=== PATIENT | female | born 1945 | race Caucasian/White ===

== ENCOUNTER → 2017-02-10 | Outpatient (CLI) | payer MEDICARE, OTHER ==
[2017-02-10 12:24] LABS: ABSOLUTE BASOPHILS # (AUTO) 0.1 10^3/uL (0.0-0.2); ABSOLUTE EOSINOPHILS # (AUTO) 0.1 10^3/uL (0.0-0.6); ABSOLUTE LYMPHOCYTES (AUTO) 1.6 10^3/uL (0.5-4.7); ABSOLUTE MONOCYTES (AUTO) 0.4 10^3/uL (0.1-1.4); ABSOLUTE NEUT (AUTO) 3.2 10^3/uL (1.7-8.2); BASOPHILS % (AUTO) 1.1 % (0-2); EOSINOPHILS % (AUTO) 1.4 % (0-6); HEMATOCRIT 35.6 % (36.0-47.0); HEMOGLOBIN 11.8 g/dL (12.0-15.5); HGB HCT DIFFERENCE -0.2; LYMPHOCYTES % (AUTO) 30.2 % (13-45); MEAN CORPUSCULAR HEMOGLOBIN 27.9 pg (27.0-33.4); MEAN CORPUSCULAR HGB CONC 33.1 g/dL (32.0-36.0); MEAN CORPUSCULAR VOLUME 84 fl (80-97); MONOCYTES % (AUTO) 7.5 % (3-13); RED BLOOD COUNT 4.24 10^6/uL (3.72-5.28); RED CELL DISTRIBUTION WIDTH 16.3 % (11.5-14.0); SEGMENTED NEUTROPHILS % (AUTO) 59.8 % (42-78); WHITE BLOOD COUNT 5.3 10^3/uL (4.0-10.5)
[2017-02-10 12:31] LABS: PROTHROMBIN TIME 13.2 SEC (11.4-15.4)
[2017-02-10 12:32] LABS: PARTIAL THROMBOPLASTIN TIME 27.5 SEC (23.5-35.8)
[2017-02-10 12:54] LABS: ANION GAP 10 (5-19); BLOOD UREA NITROGEN 21 mg/dL (7-20); CALCIUM 10.1 mg/dL (8.4-10.2); CARBON DIOXIDE 29 mmol/L (22-30); CHLORIDE 103 mmol/L (98-107); CREATININE RESULT 0.85 mg/dL (0.52-1.25); GLUCOSE 96 mg/dL (75-110); POTASSIUM 4.4 mmol/L (3.6-5.0); SODIUM 142.4 mmol/L (137-145)
== END ==
LOC: OD 10:51
PROVIDERS: ATTEND Orthopaedic Surgery
DX: Z96.649 Presence of unspecified artificial hip joint (principal)
CPT/HCPCS: 36415; 80048; 85025; 85610; 85730

== ENCOUNTER → 2017-02-17 | Outpatient (CLI) | payer MEDICARE, OTHER ==
[2017-02-17 10:09] LABS: APPEARANCE,URINE SLIGHTLY-CLOUDY; BILIRUBIN,URINE NEGATIVE (NEGATIVE); GLUCOSE, URINE NEGATIVE (NEGATIVE); KETONES,URINE NEGATIVE (NEGATIVE); LEUKOCYTE ESTERASE,URINE NEGATIVE (NEGATIVE); NITRITE,URINE NEGATIVE (NEGATIVE); PROTEIN,URINE NEGATIVE (NEGATIVE); UROBILINOGEN,URINE NEGATIVE mg/dL (<2.0)
[2017-02-17 10:24] LABS: ANION GAP 13 (5-19); BLOOD UREA NITROGEN 21 mg/dL (7-20); CALCIUM 10.1 mg/dL (8.4-10.2); CARBON DIOXIDE 28 mmol/L (22-30); CHLORIDE 102 mmol/L (98-107); CREATININE RESULT 0.92 mg/dL (0.52-1.25); GLUCOSE 103 mg/dL (75-110); POTASSIUM 5.2 mmol/L (3.6-5.0); SODIUM 142.5 mmol/L (137-145)
--- NOTE | 2017-02-17 22:10 | EKG REPORT ---
SEVERITY:- NORMAL ECG - SINUS RHYTHM : Confirmed by: Gila Blue MD 17-Feb-2017 22:09:48
== END ==
LOC: OD 09:22
PROVIDERS: ATTEND Orthopaedic Surgery
DX: Z01.810 Encounter for preprocedural cardiovascular examination (principal); Z01.812 Encounter for preprocedural laboratory examination; Z01.818 Encounter for other preprocedural examination
CPT/HCPCS: 36415; 71020; 80048; 81001; 85652; 93005; 93010

== ENCOUNTER 2017-03-15 06:19 | Inpatient (IN) | payer MEDICARE, OTHER ==
[2017-03-04 12:56] LABS: HEMATOCRIT 36.4 % (36.0-47.0); HEMOGLOBIN 11.9 g/dL (12.0-15.5); HGB HCT DIFFERENCE -0.7; MEAN CORPUSCULAR HEMOGLOBIN 27.8 pg (27.0-33.4); MEAN CORPUSCULAR HGB CONC 32.8 g/dL (32.0-36.0); MEAN CORPUSCULAR VOLUME 85 fl (80-97); RED CELL DISTRIBUTION WIDTH 15.7 % (11.5-14.0); WHITE BLOOD COUNT 5.3 10^3/uL (4.0-10.5)
[~2017-03-15 06:19] MED LIST: BUPIVACAINE INJ/PF LIPOSOME/PF 266 MG/20 ML SDV IJ PRN; CEFAZOLIN INJ 1 GM VIAL IV PRN; IBUPROFEN 800 MG/NS 250 ML IV PRN; LACTATED RINGERS 1000 ML IV PRN; LANSOPRAZOLE 15 MG TAB.RAP.DR PO PRN; LIDOCAINE 0.5% INJ-PF (5 MG/ML) 50 ML SDV SUBCUT PRN; OXYCODONE HCL SR 10 MG TABLET PO PRN; SCOPOLAMINE HYDROBROMIDE 1.5 MG PATCH.TD72 TOP PRN; VANCOMYCIN HCL 1,000 MG in DEXTROSE 5%-WATER 250 ML IV PRN
[2017-03-15] MEDS ORDERED: FENTANYL CITRATE INJ/PF 100 MCG/2 ML AMPUL ONE (06:52)
[2017-03-15] MEDS ORDERED: MIDAZOLAM 2 MG/2 ML INJ ONE ×2 (06:52→06:53)
[2017-03-15] MEDS ORDERED: ONDANSETRON HCL INJ/PF 4 MG/2 ML SDV ONE (06:53)
[2017-03-15] MEDS ORDERED: DEXAMETHASONE SOD PHOSPHATE INJ 4 MG/1 ML VIAL ONE (06:53)
[2017-03-15] MEDS ORDERED: TRANEXAMIC ACID INJ/PF 1,000 MG/10 ML SDV IV ONE (06:53)
[2017-03-15] MEDS ORDERED: PROPOFOL INJ 200 MG/20 ML VIAL IV ONE (06:53)
[2017-03-15] MEDS ORDERED: MORPHINE SULFATE 10 MG/ML INJ ONE (06:54)
[2017-03-15] MEDS ORDERED: BUPIVACAINE INJ/PF LIPOSOME/PF 266 MG/20 ML SDV ONE (07:38)
[2017-03-15] MEDS ORDERED: THROMBIN (BOVINE) 5000 UNIT EPITAXIS KIT ONE (07:47)
[2017-03-15] MEDS ORDERED: THROMBIN (BOVINE) TOPICAL 20000 UNIT VIAL ONE (07:49)
[2017-03-15] MEDS ORDERED: MEPERIDINE HCL/PF INJ 25 MG/1 ML DISP.SYRIN IV PRN (09:52)
[2017-03-15] MEDS ORDERED: DIPHENHYDRAMINE HCL 50 MG/ML VIAL IV PRN ×2 (09:52→10:56)
[2017-03-15] MEDS ORDERED: FENTANYL CITRATE INJ/PF 100 MCG/2 ML AMPUL IV PRN ×3 (09:52)
[2017-03-15] MEDS ORDERED: PROMETHAZINE HCL INJ 25 MG/1 ML VIAL IV PRN ×2 (09:52)
[2017-03-15] MEDS ORDERED: MORPHINE SULFATE 10 MG/ML INJ IV PRN ×4 (09:52→10:56)
[2017-03-15] MEDS ORDERED: MORPHINE SULFATE 10 MG/ML INJ IM PRN (10:56)
[2017-03-15] MEDS ORDERED: RINGERS SOLUTION,LACTATED 1,000 ML IV PRN (10:56)
[2017-03-15] MEDS ORDERED: ZOLPIDEM TARTRATE 5 MG TABLET PO PRN (10:56)
[2017-03-15] MEDS ORDERED: OXYCODONE HCL IR 5 MG TABLET PO PRN (10:56)
[2017-03-15] MEDS ORDERED: ONDANSETRON HCL INJ/PF 4 MG/2 ML SDV IV PRN (10:56)
[2017-03-15] MEDS ORDERED: ONDANSETRON 4 MG TAB.RAPDIS PO PRN (10:56)
[2017-03-15] MEDS ORDERED: ACETAMINOPHEN 325 MG TABLET PO PRN (10:56)
[2017-03-15] MEDS ORDERED: MAG HYDROX/AL HYDROX/SIMETH SUSP 30 ML UDCUP PO PRN (10:56)
--- NOTE | 2017-03-15 11:05 | Operative Report ---
Operative Report DATE OF SURGERY: 03/15/17 PREOPERATIVE DIAGNOSIS: Failed right hip arthroplasty OPERATION: Revision right hip arthroplasty, sciatic neuro lysis SURGEON: SHANTELL CHRISTIANSON ANESTHESIA: Spinal TISSUE REMOVED OR ALTERED: Cultures to microbiology, implants to pathology. ESTIMATED BLOOD LOSS: 150 PROCEDURE: Implants used: Femur:[] Acetabular shell: 56 mm revision titanium hemispherical shell Liner:, 36 mm flat cross-link polyethylene liner Head:. 36 Mary chrome cobalt head +10 neck extension The patient is placed in a, left lateral decubitus position on the operating table. The, right lower extremity and hindquarter is prepped and draped in a sterile fashion. A curvilinear incision was made over the greater trochanter a posterior approach the hip was taken in line with her previous surgical approach. The sciatic nerve was traced from the sciatic notch down to the gluteal sling and protected during the remainder of the case. On entering the capsule cultures are sent to microbiology.. The femoral head is impacted from the existing trunnion. Attention was next turned to the acetabulum. Soft tissues cleared off the acetabulum using electrocautery. Existing liner and screw were removed. The acetabulum was then tested with a Sylvia clamp. Initially, my perception was that it did not move. However, with further working around the periphery. I' ve convince myself that the cup is in fact loose and was removed using acetabular osteotomes. There is no bone growth onto the back of the cup and is no bone loss associated with the cup removal. The acetabulum was then prepared using a series of hemispherical reamers until a. If the 55 millimeters reamer is seated. Subsequently a 56 millimeters [place] titanium hemispherical revision shell is impacted into position and secured with 2 screws. A standard flat. 36 millimeters cross-link liner is impacted into the shell. Attention was next turned to the femur. A trial reduction was now performed using a 36 millimeters head with plus 10 neck. Preoperative leg length was recreated and is excellent anterior posterior stability. A decision was made to proceed with the above construct. The wound is irrigated with pulsed lavage. The hip was dislocated one last time and the final chrome-cobalt head is impacted onto the trunnion. The hip was reduced. Wound is copiously irrigated with pulsed lavage. Sent closed in layers using interrupted Vicryl followed by misty. A sterile dressing is applied and the patient's returned to recovery room in satisfactory patient.
[2017-03-15] MEDS ORDERED: TRANEXAMIC ACID INJ/PF 1,000 MG/10 ML SDV IV PRN (13:00)
[2017-03-15] MEDS ORDERED: (PENDING PHARMACY ID) (Clonazepam [Klonopin 0.5 Mg Tablet Rapid Dissolve] 0.5 MG) PO SCH (18:00)
[2017-03-15] MEDS: IBUPROFEN 800 MG in NORMAL SALINE 250 ML IV SCH (18:55)
[2017-03-15] MEDS: CLONAZEPAM 1 MG TABLET PO SCH (18:56)
[2017-03-15] MEDS: SENNOSIDES/DOCUSATE 8.6-50 MG 1 EACH TABLET PO SCH (19:01)
[2017-03-15] MEDS: OXYCODONE HCL SR 10 MG TABLET PO SCH (21:19)
[2017-03-15] MEDS ORDERED: DOXEPIN HCL 25 MG CAPSULE PO SCH (22:00)
[2017-03-15] MEDS ORDERED: RIVAROXABAN 10 MG TABLET PO SCH (22:00)
[2017-03-15] MEDS ORDERED: VANCOMYCIN HCL 1,000 MG in DEXTROSE 5%-WATER 250 ML IV ONE (23:00)
[2017-03-16] MEDS: IBUPROFEN 800 MG in NORMAL SALINE 250 ML IV SCH ×2 (02:59→09:07)
[2017-03-16] MEDS: BUPROPION HCL 100 MG TABLET PO SCH ×2 (05:28→13:55)
[2017-03-16 05:36] LABS: HEMATOCRIT 29.9 % (36.0-47.0); HEMOGLOBIN 9.7 g/dL (12.0-15.5); HGB HCT DIFFERENCE -0.8; MEAN CORPUSCULAR HEMOGLOBIN 27.8 pg (27.0-33.4); MEAN CORPUSCULAR HGB CONC 32.6 g/dL (32.0-36.0); MEAN CORPUSCULAR VOLUME 85 fl (80-97); RED CELL DISTRIBUTION WIDTH 15.4 % (11.5-14.0); WHITE BLOOD COUNT 6.1 10^3/uL (4.0-10.5)
[2017-03-16 05:56] LABS: ANION GAP 8 (5-19); BLOOD UREA NITROGEN 11 mg/dL (7-20); CALCIUM 8.7 mg/dL (8.4-10.2); CARBON DIOXIDE 29 mmol/L (22-30); CHLORIDE 106 mmol/L (98-107); CREATININE RESULT 0.82 mg/dL (0.52-1.25); GLUCOSE 99 mg/dL (75-110); POTASSIUM 4.3 mmol/L (3.6-5.0)
[2017-03-16] MEDS ORDERED: LANSOPRAZOLE 30 MG TAB.RAP.DR PO SCH (06:00)
--- NOTE | 2017-03-16 07:06 | PDOC DISCHARGE SUMMARY ---
General - Admit/Disc Date/PCP Admission Date/Primary Care Provider: 03/15/17 06:19 SARITHA SANCHEZ MD Discharge Date: 03/16/17 - Discharge Diagnosis (1) Mechanical problem with hip Is this a current diagnosis for this admission?: Yes - Additional Information Resuscitation Status: Full Code Discharge Diet: As Tolerated, Regular Discharge Activity: Activity As Tolerated, Balance Activity w/Rest, No Driving Home Medications: Clonazepam [Klonopin 0.5 mg Tablet Rapid Dissolve] 0.5 mg PO BID 04/28/16 Doxepin HCl [Sinequan 25 mg Capsule] 25 mg PO QHS 04/28/16 Esomeprazole Magnesium [Nexium] 40 mg PO QAM 04/28/16 Multivitamin [Multivitamins] 1 each PO DAILY 04/28/16 Naproxen 500 mg PO BID 05/04/16 Bupropion HCl [Wellbutrin Xl 300mg 24hr Tablet] 1 tab PO QAM 03/03/17 Tramadol HCl 50 mg PO BID 03/03/17 Oxycodone HCl [Oxy-Ir 5 mg Tablet] 5 mg PO Q6HP PRN #0 tablet 03/16/17 Rivaroxaban [Xarelto 10 mg Tablet] 10 mg PO QHS #0 tablet 03/16/17 History of Present Illness History of Present Illness: RAMBO PATEL is a 71 year old female status post primary right hip arthroplasty approximately year ago now with progressive right hip pain and functional disability. Radiographs remained normal as does the bone scan. Inflammatory serologic parameters are normal. Hospital Course Hospital Course: Patient's admitted through the operating room where she undergoes a revision of her right acetabular component. She was returned to the PACU in satisfactory condition. She then progresses to the floor where she seen by physical therapy and she emulates 300 feet on the day of surgery with physical therapy. Dressing remains clean dry and intact. Leg lengths are equal. Distal neurovascular examinations intact. Her preoperative pain is completely resolved. Physical Exam Vital Signs: Temp Pulse Resp BP Pulse Ox 36.7 C 92 17 120/40 L 98 03/16/17 00:00 03/16/17 00:00 03/16/17 00:00 03/16/17 00:00 03/16/17 00:00 Intake & Output 03/15/17 03/16/17 03/17/17 06:59 06:59 06:59 Intake Total 5163 Output Total 3800 Balance 1363 Weight 93.44 kg General appearance: PRESENT: no acute distress Head exam: PRESENT: normocephalic Eye exam: PRESENT: EOMI Respiratory exam: PRESENT: unlabored Cardiovascular exam: PRESENT: RRR GI/Abdominal exam: PRESENT: soft Rectal exam: PRESENT: deferred Musculoskeletal exam: PRESENT: other - Right hip dressing is clean dry and intact. Leg lengths are equal. Neurovascular examinations intact. Neurological exam: PRESENT: alert, awake, oriented to person, oriented to place , oriented to time, oriented to situation. ABSENT: motor sensory deficit Psychiatric exam: PRESENT: appropriate affect, normal mood. ABSENT: homicidal ideation, suicidal ideation Skin exam: PRESENT: dry, intact, warm. ABSENT: cyanosis, rash Results Laboratory Results: 03/16/17 05:26 03/16/17 05:26 03/15/17 03/16/17 03/16/17 06:40 05:26 05:26 WBC 6.1 RBC 3.50 L Hgb 9.7 L Hct 29.9 L MCV 85 MCH 27.8 MCHC 32.6 RDW 15.4 H Plt Count 149 L Sodium 143.0 Potassium 4.3 Chloride 106 Carbon Dioxide 29 Anion Gap 8 BUN 11 Creatinine 0.82 Est GFR ( Amer) > 60 Est GFR (Non-Af Amer) > 60 Glucose 99 Calcium 8.7 Blood Type A POSITIVE Antibody Screen NEGATIVE Impressions: Pelvis X-Ray 03/15/17 10:58 IMPRESSION: SATISFACTORY POSTOPERATIVE RIGHT HIP. Status: Imported from PACS Plan Discharge Plan: Patient will be discharged home with home health nursing, home health physical therapy, we'll Walker, bedside commode. Visiting nurse service to change the eleno dressing on postop day #7 to an OpSite. Follow he with Dr. Guerrero in the [facility] for surgery approximately 2 weeks for staple removal. Time Spent: Less than 30 Minutes
[2017-03-16] MEDS: SENNOSIDES/DOCUSATE 8.6-50 MG 1 EACH TABLET PO SCH (09:11)
[2017-03-16] MEDS: CLONAZEPAM 1 MG TABLET PO SCH (09:11)
[2017-03-16] MEDS: OXYCODONE HCL SR 10 MG TABLET PO SCH (09:12)
[2017-03-16] MEDS ORDERED: PRENATAL VITAMIN W-O CA NO5/FE FUMARATE/FA CAPSULE PO SCH (10:00)
[2017-03-16 12:14] VITALS: BP 123/47
== END 2017-03-16 18:45 | disposition home health service (06) | DRG 468 ==
LOC: INOR 06:19 → 4S 12:18
PROVIDERS: ADMIT Orthopaedic Surgery; ATTEND Orthopaedic Surgery
PROC: 0SP909Z Removal of Liner from Right Hip Joint, Open Approach (ICD-10-PCS; 2017-03-15)
PROC: 0SUA09Z Supplement Right Hip Joint, Acetabular Surface with Liner, Open Approach (ICD-10-PCS; 2017-03-15)
PROC: 0SP90JZ Removal of Synthetic Substitute from Right Hip Joint, Open Approach (ICD-10-PCS; 2017-03-15)
PROC: 01NF0ZZ Release Sciatic Nerve, Open Approach (ICD-10-PCS; 2017-03-15)
PROC: 0SR902A Replacement of Right Hip Joint with Metal on Polyethylene Synthetic Substitute, Uncemented, Open Approach (ICD-10-PCS; principal; 2017-03-15 08:45)
DX: T84.030A Mechanical loosening of internal right hip prosthetic joint, initial encounter (principal); Z96.641 Presence of right artificial hip joint
CPT/HCPCS: 01215; 36415; 72170; 80048; 85027; 86850; 86900; 86901; 87070; 87075; 87205; 94799; C1713; C9290; G8978-GP; G8979-GP; G8987-GO; G8988-GO; J0690; J1100; J1741; J2250; J2270; J2405; J2704; J3010; J3370; J3490; J7050; J7060

== ENCOUNTER → 2017-10-17 | Outpatient (CLI) | payer MEDICARE, OTHER ==
--- NOTE | 2017-10-18 09:55 | RADIOLOGY REPORT (SQ) ---
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 RADIONUCLIDE AND DOSE: 11.45 mCi F18 FDG The route of agent administration: Intravenous FASTING BLOOD SUGAR: 104 mg/dl CONTRAST TYPE AND DOSE: No CT contrast given. TECHNIQUE: Blood glucose level was verified. Above dose of FDG was injected intravenously. 2-D seg mented attenuation correction images were obtained from the base of the skull to the midthighs. Nonc ontrast CT images were obtained for attenuation correction and fusion with emission images. CT image s were performed without oral or intravenous contrast and are not sensitive for parenchymal lesions. A series of overlapping emission PET images were obtained. [facility] by the radiologist. Images stored on PACS. LIMITATIONS: Artifact from left shoulder and bilateral hip arthroplasty. FINDINGS: HEAD AND NECK: No areas of abnormal metabolic activity in the soft tissues of the head and neck. CHEST: No areas of abnormal metabolic activity in the chest. ABDOMEN AND PELVIS: No areas of abnormal metabolic activity in the abdomen or pelvis. Expected physi ologic activity is present in the genitourinary system and bowel. PROXIMAL LOWER EXTREMITIES: No areas of abnormal metabolic activity in the soft tissues of the lower extremities. BONES: No abnormal metabolic activity in the visualized skeleton. ADDITIONAL CT FINDINGS: Mitral annular calcifications. Pneumobilia status post cholecystectomy. Princess or lap banding. Anterior abdominal wall hernia containing nondilated bowel. OTHER: No other significant findings. IMPRESSION: No evidence of metastatic disease. TECHNICAL DOCUMENTATION: JOB ID: [id number] All Rights Reserved
== END ==
LOC: RAD 17:20
PROVIDERS: ATTEND Internal Medicine Medical Oncology
DX: C23 Malignant neoplasm of gallbladder (principal)
CPT/HCPCS: 78815; A9552

== ENCOUNTER 2017-11-10 10:51 | Day surgery (SDC) | payer MEDICARE, OTHER ==
[~2017-11-10 10:51] MED LIST changes: -BUPIVACAINE INJ/PF LIPOSOME/PF 266 MG/20 ML SDV IJ PRN; -CEFAZOLIN INJ 1 GM VIAL IV PRN; -IBUPROFEN 800 MG/NS 250 ML IV PRN; +KETOROLAC TROMETHAMINE 0.45% 4 DROP/0.4 ML DROPERETTE OS PRN; -LACTATED RINGERS 1000 ML IV PRN; -LANSOPRAZOLE 15 MG TAB.RAP.DR PO PRN; -LIDOCAINE 0.5% INJ-PF (5 MG/ML) 50 ML SDV SUBCUT PRN; -OXYCODONE HCL SR 10 MG TABLET PO PRN; -SCOPOLAMINE HYDROBROMIDE 1.5 MG PATCH.TD72 TOP PRN; -VANCOMYCIN HCL 1,000 MG in DEXTROSE 5%-WATER 250 ML IV PRN
[2017-11-10] MEDS: TROPICAMIDE 1% OPH SOLN 3 ML OS PRN ×3 (11:02→11:33)
[2017-11-10] MEDS: CYCLOPENTOLATE 0.2%/PHENYLEPHRINE 1% OPH SOLN 2 ML OS PRN ×3 (11:02→11:33)
[2017-11-10] MEDS: BESIFLOXACIN HCL 0.6% OPH SUSP 5 ML BOTTLE OS PRN ×3 (11:03→12:05)
[2017-11-10] MEDS: TETRACAINE HCL 0.5% OPH SOLN 0.6 ML DROPERETTE OS PRN ×3 (11:04→11:50)
[2017-11-10] MEDS ORDERED: EPINEPHRINE INJ/PF 1 MG/1 ML AMPULE ONE (11:30)
[2017-11-10] MEDS ORDERED: LIDOCAINE 1% INJ-PF (10 MG/ML) 30 ML SDV ONE (11:30)
[2017-11-10] MEDS ORDERED: TOBRAMYCIN SULFATE/DEXAMETH OPH OINTMENT 3.5 GM ONE (11:30)
[2017-11-10] MEDS ORDERED: CHONDR SU A NA/HYALUR INTRAOC KIT (SURGICARE) ONE (11:30)
[2017-11-10] MEDS ORDERED: MIDAZOLAM 2 MG/2 ML INJ ONE (11:32)
== END 2017-11-10 12:48 | disposition home or self-care (01) ==
LOC: SC 10:51
PROVIDERS: ATTEND Ophthalmology
PROC: 08RK3JZ Replacement of Left Lens with Synthetic Substitute, Percutaneous Approach (ICD-10-PCS; principal; 2017-11-10 11:30)
DX: H25.12 Age-related nuclear cataract, left eye (principal); M19.90 Unspecified osteoarthritis, unspecified site; E11.9 Type 2 diabetes mellitus without complications; Z79.891 Long term (current) use of opiate analgesic; Z85.09 Personal history of malignant neoplasm of other digestive organs
CPT/HCPCS: 66984; V2630; J2250; J3490 ×3; A9270; J0171; 142

== ENCOUNTER 2017-11-24 06:46 | Day surgery (SDC) | payer MEDICARE, OTHER ==
[~2017-11-24 06:46] MED LIST changes: +KETOROLAC TROMETHAMINE 0.45% 4 DROP/0.4 ML DROPERETTE OD PRN; -KETOROLAC TROMETHAMINE 0.45% 4 DROP/0.4 ML DROPERETTE OS PRN
[2017-11-24] MEDS: TETRACAINE HCL 0.5% OPH SOLN 0.6 ML DROPERETTE OD PRN ×4 (06:58→07:51)
[2017-11-24] MEDS: CYCLOPENTOLATE 0.2%/PHENYLEPHRINE 1% OPH SOLN 2 ML OD PRN ×3 (06:59→07:30)
[2017-11-24] MEDS: BESIFLOXACIN HCL 0.6% OPH SUSP 5 ML BOTTLE OD PRN ×4 (06:59→08:15)
[2017-11-24] MEDS: TROPICAMIDE 1% OPH SOLN 3 ML OD PRN ×3 (06:59→07:30)
[2017-11-24] MEDS ORDERED: MIDAZOLAM 2 MG/2 ML INJ ONE (07:40)
[2017-11-24] MEDS ORDERED: FENTANYL CITRATE INJ/PF 100 MCG/2 ML AMPUL ONE (07:40)
[2017-11-24] MEDS: LIDOCAINE 1% INJ-PF (10 MG/ML) 30 ML SDV ONE ×2 (08:04)
[2017-11-24] MEDS: EPINEPHRINE INJ/PF 1 MG/1 ML AMPULE ONE ×2 (08:04)
[2017-11-24] MEDS: CHONDR SU A NA/HYALUR INTRAOC KIT (SURGICARE) ONE ×2 (08:04)
[2017-11-24] MEDS: TOBRAMYCIN SULFATE/DEXAMETH OPH OINTMENT 3.5 GM ONE ×2 (08:15)
== END 2017-11-24 08:50 | disposition home or self-care (01) ==
LOC: SC 06:46
PROVIDERS: ATTEND Ophthalmology
PROC: 08RJ3JZ Replacement of Right Lens with Synthetic Substitute, Percutaneous Approach (ICD-10-PCS; principal; 2017-11-24 07:45)
DX: H25.11 Age-related nuclear cataract, right eye (principal); Z98.42 Cataract extraction status, left eye; M19.90 Unspecified osteoarthritis, unspecified site; E11.9 Type 2 diabetes mellitus without complications; F41.9 Anxiety disorder, unspecified; Z96.643 Presence of artificial hip joint, bilateral; Z79.891 Long term (current) use of opiate analgesic; Z79.899 Other long term (current) drug therapy; Z85.09 Personal history of malignant neoplasm of other digestive organs
CPT/HCPCS: 66984; V2630; J2250; J3490 ×3; A9270; J0171; J3010; 142